=== PATIENT | female | born 1990 | race Caucasian/White ===

== ENCOUNTER 2016-12-07 23:26 | Emergency (ER) | payer OTHER ==
[~2016-12-07] VITALS: Ht 162.6 cm; Wt 77.1 kg
[2016-12-07 23:35] VITALS: BP 143/98
[2016-12-07] MEDS ORDERED: AUGMENTIN 875-1 EACH PO (23:37)
--- NOTE | 2016-12-07 23:37 | ED SKIN/ALLERGY COMPLAINT ---
History of Present Illness General Chief Complaint: Animal/Insect Bite Stated Complaint: RIGHT THUMB FINGER BITE BY DOG Source: patient Exam Limitations: no limitations Vital Signs & Intake/Output Vital Signs & Intake/Output Vital Signs Date Time Temp Pulse Resp B/P Pulse O2 O2 Flow FiO2 Ox Delivery Rate 12/07 2335 97.8 102 20 143/98 96 Room Air Reconcile Medications Amoxicillin/Potassium Clav (Augmentin 875-125 Tablet) 875 MG-125 MG TABLET 1 TAB PO BID PROPHYLAXIS Triage Nurses Notes Reviewed? yes Onset: Just prior to arrival Duration: hour(s): (1) Timing: remote history Severity: mild Severity Numbers: 5 Location: extremities Possible Factors: dog bite No Modifying Factors: none HPI: Patient is a 26-year-old female up-to-date with tetanus immunization presenting to the emergency department with chief complaint of dog bite to right thumb. 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 She reports it is up-to-date with immunizations. Pain is mild and moderate, worse with palpation. Denies any nausea or vomiting or Chills. She cleaned it immediately after it happened. Denies any other injury. No numbness or tingling. Denies taking anything for pain. Pain does not radiate. (REYMUNDO HELTON) Past History Travel History Traveled to [place] past 21 day No Medical History Any Pertinent Medical History? see below for history Surgical History Surgical History: non-contributory Family History Hx Contributory? No (REYMUNDO HELTON) Review of Systems Review of Systems Constitutional: Reports: no symptoms. Comments Review of systems: See HPI, All other systems negative. Constitutional, no chills fever or weight loss HEENT: No visual changes no sore throat no congestion Cardiovascular: No chest pain ,palpitation Skin, no jaundice Respiratory: No dyspnea cough GI: No nausea no vomiting Muscle skeletal: no back pain, no neck pain, Neurologic: No numbness Psych: No stress Immunology: No splenectomy or history of AIDS (REYMUNDO HELTON) Physical Exam Physical Exam General Appearance: well developed/nourished, no apparent distress, alert, awake , comfortable Comments: Well-developed well-nourished no apparent distress. HEENT: Atraumatic, extraocular motion intact Neck: Supple, no lymphadenopathy Back: Nontender Respiratory: No respiratory distress Extremities: No edema, full range of motion of all fingers on the upper x-rays bilaterally. Tenderness to palpation of the distal tip of the right thumb. Capillary refills intact in upper extremities. Radial pulses are 2+ bilaterally. No subungual hematoma noted. Skin: There are 2-3 superficial puncture wounds noted on the distal tip of the right thumb, minimal surrounding erythema, no obvious edema. No foreign bodies appreciated. Mildly tender to palpation over this area. No discharge. Neuro: Alert and oriented x3, motor and sensory intact in upper extremities. Psych: Mood affect normal, normal memory normal judgment. (REYMUNDO HELTON) Progress Differential Diagnosis: cellulitis, dog bite, prophylaxis against cellulitis Plan of Care: Patient's wound was cleaned with Betadine and saline, dressed with bacitracin. Patient will be started on Augmentin. She'll return for worsening symptoms or concerns. Patient up-to-date with tetanus. (REYMUNDO HELTON) Departure Departure Time of Disposition: 2335 Disposition: HOME OR SELF CARE Condition: Stable Clinical Impression Primary Impression: Dog bite Qualifiers: Encounter type: initial encounter Qualified Code: W54.0XXA - Bitten by dog, initial encounter Additional Instructions: Take Augmentin as prescribed to help prevent infection. Keep wound clean and dry. Apply bacitracin daily. Return for worsening symptoms or concerns. Take [id number] Tylenol and Motrin as directed. Departure Forms: Customer Survey General Discharge Information Prescriptions: Current Visit Scripts Amoxicillin/Potassium Clav (Augmentin 875-125 Tablet) 1 TAB PO BID #14 TAB (REYMUNDO HELTON) PA/THEATRICAL TROUPER Co-Sign Statement Statement: ED Attending supervision documentation- [] I saw and evaluated the patient. I have also reviewed all the pertinent lab results and diagnostic results. I agree with the findings and the plan of care as documented in the PA's/THEATRICAL TROUPER's documentation. [x] I have reviewed the ED Record and agree with the PA's/THEATRICAL TROUPER's documentation. [] Additions or exceptions (if any) to the PAs/THEATRICAL TROUPER's note and plan are summarized below: [] (INO HILLS DO
== END 2016-12-07 23:55 ==
LOC: ERH 23:26
DX: S61.051A Open bite of right thumb without damage to nail, initial encounter (principal); W54.0XXA Bitten by dog, initial encounter